=== PATIENT | female | born 1955 | race Caucasian/White ===

== ENCOUNTER 2023-03-30 17:24 | Emergency (ER) | payer MEDICARE, OTHER, SELFPAY ==
[2023-03-30 17:35] VITALS: BP 174/75; PULSE 72; RESP 18; TEMP 36.4; O2SAT 100; BMI 22.3
--- NOTE | 2023-03-30 17:48 | ED.HEATRA ---
HPI - Head Injury <Vijaya Guzman PA-C - Last Filed: 03/30/23 19:09> General Chief complaint: Head Injury Stated complaint: fell back onto head, feels banged up on left side Time Seen by Provider: 03/30/23 17:41 Source: patient Mode of arrival: Ambulatory History of Present Illness HPI Narrative: Patient is a 67-year-old female who presents after falling backwards after getting off a stool at a bar earlier today. The stools were up on a step which caused her to misstep and fall backwards. She presented to the walk-in clinic for evaluation of hematoma on the back of her head and was transferred to the emergency department for further evaluation. She denies any nausea/vomiting, amnesia, loss of consciousness. She endorses mild headache and posterior skull pain but has not taken any pain medication. She does not take any blood thinners including no aspirin. She lives in [place] but is in town for the weekend, staying by herself. She is very worried that if she develops any concerning symptoms overnight, she will be alone and unable to access help. Related Data Home Medications Medication Instructions Recorded Confirmed levothyroxine 25 mcg tablet 25 mcg PO DAILY 03/30/23 03/30/23 (Synthroid) zolpidem 5 mg tablet (Ambien) 5 mg PO BEDTIME 03/30/23 03/30/23 Allergies Allergy/AdvReac Type Severity Reaction Status Date / Time No Known Drug Allergies Allergy Verified 03/30/23 17:39 Review of Systems <Vijaya Guzman PA-C - Last Filed: 03/30/23 19:09> Review of Systems ROS Unobtainable: All systems reviewed & are unremarkable except as noted in HPI and below Patient History <Vijaya Guzman PA-C - Last Filed: 03/30/23 19:09> Social History Smoking Status: Never smoker Smoking Status: Never smoker alcohol intake frequency: 0-2 drinks per day Substance Use Type: does not use Exam <Vijaya Guzman PA-C - Last Filed: 03/30/23 19:09> Narrative Exam Narrative: GENERAL: 67 year old patient appears stated age. Well-developed patient, in no distress. NEURO: AOx4. HEAD: Tender hematoma over occiput. EYES: Pupils equal round and reactive. Extraocular motions intact. No scleral icterus. No injection or drainage. RESPIRATORY: No distress EXTREMITIES: Mild BUE tenderness after fall with full ROM, no obvious deformity. SKIN: No rash or erythema of visible areas Initial Vital Signs Initial Vital Signs: Vital Signs Temperature 97.5 F L 03/30/23 17:35 Pulse Rate 72 03/30/23 17:35 Respiratory Rate 18 03/30/23 17:35 Blood Pressure 174/75 H 03/30/23 17:35 Pulse Oximetry 100 03/30/23 17:35 Oxygen Delivery Method Room Air 03/30/23 17:35 <Angelo Carpenter DO - Last Filed: 03/31/23 06:58> Initial Vital Signs Initial Vital Signs: Vital Signs Temperature 97.5 F L 03/30/23 17:35 Pulse Rate 72 03/30/23 17:35 Respiratory Rate 18 03/30/23 17:35 Blood Pressure 174/75 H 03/30/23 17:35 Pulse Oximetry 100 03/30/23 17:35 Oxygen Delivery Method Room Air 03/30/23 17:35 Scores <CHARY Sánchez Last Filed: 03/30/23 19:09> [place] Head Rule Age <16 years old: No Patient on blood thinners: No Seizure after injury: No Exclusion: Patient NOT Excluded, Proceed to next steps GCS < 15 at 2 hr post trauma: No Suspected open or depressed skull fracture: No Any sign of basilar skull fracture (hemotympanum, raccoon eyes, Perez's sign, CSF liliana-/rhinorrhea): No Two or more episodes of vomiting: No Age greater or equal to 65 years: Yes Retrograde amnesia to the event greater or equal to 30 min: No Dangerous Mechanism (pedestrian vs. mv, occupant ejected from mv, fall from >3 ft or > 5 stairs): No Recommendation: Consider CT. The [place] Head CT Rule cannot rule out need for Imaging. <DO Ofelia Ballesteros Last Filed: 03/31/23 06:58> [place] Head Rule Exclusion: Patient NOT Excluded, Proceed to next steps Recommendation: Consider CT. The [place] Head CT Rule cannot rule out need for Imaging. Course <CHARY Sánchez Last Filed: 03/30/23 19:09> Orders Ordered: Discontinued Medications Acetaminophen (Acetaminophen 325 Mg Tablet) 975 mg PO NOW ONE Stop: 03/30/23 18:00 Last Admin: 03/30/23 18:10 Dose: 975 mg Documented By: MPO Vital Signs Vital signs: Vital Signs - 8 hr 03/30/23 17:35 03/30/23 18:39 Temperature 97.5 F L 98 F Pulse Rate 72 78 Respiratory Rate 18 20 Blood Pressure 174/75 H 161/73 H Pulse Oximetry 100 100 Oxygen Delivery Method Room Air Room Air <Angelo Carpenter DO - Last Filed: 03/31/23 06:58> Orders Ordered: Discontinued Medications Acetaminophen (Acetaminophen 325 Mg Tablet) 975 mg PO NOW ONE Stop: 03/30/23 18:00 Last Admin: 03/30/23 18:10 Dose: 975 mg Documented By: MPO Vital Signs Vital signs: Vital Signs - 8 hr 03/30/23 17:35 03/30/23 18:39 Temperature 97.5 F L 98 F Pulse Rate 72 78 Respiratory Rate 18 20 Blood Pressure 174/75 H 161/73 H Pulse Oximetry 100 100 Oxygen Delivery Method Room Air Room Air MDM - Head Injury <Vijaya Guzman PA-C - Last Filed: 03/30/23 19:09> Imaging Data CT scan - head: Radiologist's Impression: MR#: [id number] : 1955 Acct:[id number] Age/Sex: 67 / Date of Service: 03/30/23 Loc: ED Accession Number: [id number] ?? Procedure: CT head/brain wo con Ordering Provider: Vijaya Guzman P.A-C PROCEDURE:? CT HEAD/BRAIN WO CON ? INDICATIONS:? fall backwards from standing onto hard surface ? TECHNIQUE:? Noncontrast 4.5 mm thick angled axial sections acquired from the foramen magnum to the vertex, with coronal and sagittal reformats.? For radiation dose reduction, the following was used:? automated exposure control, adjustment of mA and/or kV according to patient size.? ? COMPARISON:? None. ? FINDINGS:? Image quality:? Excellent.? ? CSF spaces:? Basal cisterns are patent.? No extra-axial fluid collections.? The ventricles are symmetric in size and shape.? ? Brain:? No intracranial bleeds or masses.? There is cerebral volume loss for age, with resultant ventricular and sulcal prominence.? There are periventricular and deep white matter chronic small vessel ischemic changes.? There is intracranial internal carotid artery atherosclerosis.? ? Skull and face:? Calvarium and visualized facial bones appear intact, without suspicious lesions.? ? Sinuses:? Visualized sinuses and mastoids are clear.? ? IMPRESSION:? No acute intracranial abnormalities. ? ? Dictated by: Alex Brooks M.D. on 03/30/2023 at 18:54 ? ? Approved by: Alex Brooks M.D. on 03/30/2023 at 18:55 ? MDM Narrative Medical decision making narrative: Multiple etiologies for patient's symptoms considered including, but not limited to: skull fracture, intracranial hemorrhage. Patient's only criteria for head CT based on [place] Head CT Tool is for age greater than 65; after shared decision making conversation with patient, she very much prefers to go ahead and get a head CT today because she is staying in town by herself tonight and is worried about access and care should any more symptoms develop. Discussed risks of CT, which I think are minimal for her, and we will go ahead and proceed. Pain addressed with oral Tylenol. Head CT negative. Patient discharged with instructions for rest, pain control with Tylenol. Patient's symptoms improved over duration of stay with above-stated therapies. Findings and discharge diagnosis discussed with patient/family followed by verbalization of understanding Return precautions discussed with patient/family whom verbalize understanding of diagnosis and plan Discharge Plan Departure Patient Disposition: Home Clinical Impression: Concussion without loss of consciousness Instructions: DI for Closed Head Injury Activity Restrictions/Additional Instructions: *You have been diagnosed with a mild closed head injury. There is no evidence of bleeding in your brain or skull fracture. You can take Tylenol for headache, apply ice to the sore spot, and rest. *What to do: *Please continue to take your regular medications as directed. [ ] New medication prescriptions sent to your pharmacy: [ ] [ ] New medication written as a paper prescription [x ] No new medications given *Please follow up with your primary care provider in 2-3 days, call for an appointment. Let them know you were seen in the Emergency Department and that we ask that you be seen in follow up. We will electronically transmit a record of today's note if your PCP is in our system *If you do not have a primary care provider please contact the [facility] Resource line at [phone]. They will ask some questions about your medical history and help get you set up with a doctor in the community. *Return to Emergency Department if you should have any new, worsening or concerning symptoms, such as [fever greater than 101 F, shaking chills, worsening pain, persistent vomiting or other bothersome symptoms] Prescriptions: No Action levothyroxine [Synthroid] 25 mcg tablet 25 mcg PO DAILY zolpidem [Ambien] 5 mg tablet 5 mg PO BEDTIME Stand Alone Forms: Patient Portal/API <Angelo Carpenter, DO - Last Filed: 03/31/23 06:58> Cosign ED Attending Cosignature Attestation: Dr Carpenter Co-Sign Statement: I was available for consultation during this patient's emergency department visit. This chart is signed by myself for administrative purposes only. I did not have direct contact with this patient during this visit. They were seen independently by the APC.
--- NOTE | 2023-03-30 17:57 | DI.CT.S_ITS ---
PROCEDURE: CT HEAD/BRAIN WO CON INDICATIONS: fall backwards from standing onto hard surface TECHNIQUE: Noncontrast 4.5 mm thick angled axial sections acquired from the foramen magnum to the vertex, with coronal and sagittal reformats. For radiation dose reduction, the following was used: automated exposure control, adjustment of mA and/or kV according to patient size. COMPARISON: None. FINDINGS: Image quality: Excellent. CSF spaces: Basal cisterns are patent. No extra-axial fluid collections. The ventricles are symmetric in size and shape. Brain: No intracranial bleeds or masses. There is cerebral volume loss for age, with resultant ventricular and sulcal prominence. There are periventricular and deep white matter chronic small vessel ischemic changes. There is intracranial internal carotid artery atherosclerosis. Skull and face: Calvarium and visualized facial bones appear intact, without suspicious lesions. Sinuses: Visualized sinuses and mastoids are clear. IMPRESSION: No acute intracranial abnormalities. Dictated by: Alex Brooks M.D. on 03/30/2023 at 18:54 Approved by: Alex Brooks M.D. on 03/30/2023 at 18:55
[2023-03-30] MEDS: ACETAMINOPHEN 325 MG TABLET 975 MG PO (18:10)
[2023-03-30 18:39] VITALS: BP 161/73; PULSE 78; RESP 20; TEMP 36.6; O2SAT 100
--- NOTE | 2023-03-30 19:03 | PC.NURSE ---
Pt with multiple requests to call her with the results of her head CT. Advised that we will not do that and if she would like she can sign out AMA. Advised that we cannot discharge her without official head CT read after falling off a barstool and hitting the back of her head and complaining of blurry vision.
== END 2023-03-30 19:15 | disposition home or self-care (01) ==
PROVIDERS: Emergency Provider Physician Assistant
DX: S06.0X0A Concussion without loss of consciousness, initial encounter (principal); W10.9XXA Fall (on) (from) unspecified stairs and steps, initial encounter
CPT/HCPCS: 70450; 99283; 99284